=== PATIENT | female | born 1970 | race Caucasian/White ===

== ENCOUNTER 2017-05-16 09:37 | Emergency (ER) | payer BC, OTHER ==
[~2017-05-16] VITALS: Ht 154.9 cm; Wt 49.4 kg
[2017-05-16 09:37] VITALS: BP_SYST 114
[~2017-05-16 09:37] MED LIST: ALBU2.5V7 INH; FLUT1DIS3 IH; IPRA0.2S6 INH; LEVO500T20 PO; PRED20TA PO
[2017-05-16] MEDS ORDERED: HEPARIN IV FLUSH 1 UNIT/ML PF 6ML SYRINGE IV ONE (10:00)
[2017-05-16 10:24] VITALS: BP_SYST 128
== END 2017-05-16 10:24 | disposition home or self-care (01) ==
LOC: SED 09:37
DX: T85.698A Other mechanical complication of other specified internal prosthetic devices, implants and grafts, initial encounter (principal); J45.909 Unspecified asthma, uncomplicated; Z79.899 Other long term (current) drug therapy; Y84.8 Other medical procedures as the cause of abnormal reaction of the patient, or of later complication, without mention of misadventure at the time of the procedure
CPT/HCPCS: 96374; 99284; J1642